=== PATIENT | male | born 1960 | race Two or more races ===

== ENCOUNTER 2019-12-16 14:20 | Emergency (ER) | payer MEDICAID ==
[~2019-12-16] VITALS: Ht 154.9 cm; Wt 84.0 kg
[2019-12-16] MEDS ORDERED: ACETAMINOPHEN WITH CODEINE 300/30MG TABLET PO ONE (15:15)
[2019-12-16 15:54] VITALS: BP 129/74
== END 2019-12-16 16:08 | disposition home or self-care (01) ==
LOC: ER 14:20
DX: S40.012A Contusion of left shoulder, initial encounter (principal); W18.39XA Other fall on same level, initial encounter; Y93.89 Activity, other specified; Y92.89 Other specified places as the place of occurrence of the external cause; Y99.8 Other external cause status; Z98.890 Other specified postprocedural states
CPT/HCPCS: 73030; 99283